=== PATIENT | male | born 1990 | race Caucasian/White ===

== ENCOUNTER 2016-12-21 04:37 | Emergency (ER) | END 2016-12-21 08:04 | disposition home or self-care (01) | DX: R10.13 Epigastric pain (principal); R40.2252 Coma scale, best verbal response, oriented, at arrival to emergency department; K29.20 Alcoholic gastritis without bleeding; F10.20 Alcohol dependence, uncomplicated; I10 Essential (primary) hypertension; E03.9 Hypothyroidism, unspecified; R40.2362 Coma scale, best motor response, obeys commands, at arrival to emergency department; R40.2142 Coma scale, eyes open, spontaneous, at arrival to emergency department | CPT/HCPCS: 74176; 80053; 81003; 83690; 85025; J7030; Z7610 ==